=== PATIENT | female | born 1975 | race Caucasian/White ===

== ENCOUNTER 2019-12-12 21:32 | Emergency (ER) | payer OTHER ==
[~2019-12-12] VITALS: Ht 157.5 cm; Wt 68.9 kg
[2019-12-12 21:39] VITALS: Ht 157.5 cm; Wt 68.9 kg
[2019-12-12 22:44] VITALS: BP 136/94
== END 2019-12-12 22:44 | disposition home or self-care (01) ==
LOC: ED 21:32
DX: S13.9XXA Sprain of joints and ligaments of unspecified parts of neck, initial encounter (principal); S29.012A Strain of muscle and tendon of back wall of thorax, initial encounter; V43.52XA Car driver injured in collision with other type car in traffic accident, initial encounter; Y93.I9 Activity, other involving external motion; Y92.488 Other paved roadways as the place of occurrence of the external cause; Y99.8 Other external cause status
CPT/HCPCS: 72072; J1885